=== PATIENT | female | born 2005 | race Two or more races ===

== ENCOUNTER 2025-06-18 08:20 | Emergency (ER) | payer MEDICAID, OTHER ==
[~2025-06-18] VITALS: Ht 157.5 cm; Wt 66.6 kg
[2025-06-18 08:21] VITALS: BP 119/77; PULSE 94; RESP 15; TEMP 98.5; O2SAT 95
--- NOTE | 2025-06-18 08:44 | ED.PDOC ---
GI ASSESSMENT HPI Comments 20-year-old female presents to the ER with a prior MHx of POTS, fibromyalgia, heart problem in the chief complaint of N/V. Patient reports on having one episode of emesis one week ago associated with the nausea which is still current and constipation for the past four days. Patient also reports on having a syncope which started today. Patient notes that she is currently on control pills and has no menstruation cycle. Denies any other symptoms at this time. Denies lightheadedness or dizziness Denies acid reflux, recurrent bitter/sour taste in mouth Denies shortness of breath Denies palpitations, leg swelling Denies family history of heart issues or [place] Denies history of panic attacks Denies recent trauma to the chest, history of significant trauma to the chest nor surgeries of the chest Denies fever chills nausea vomiting diarrhea Chief Complaint: Nausea/Vomiting Time Seen by MD: 08:40 Reviewed Notes: Nurses Notes, Medications, Allergies Allergies: Coded Allergies: Fexofenadine (Verified Allergy, Severe, 06/18/25) Information Source: Patient Mode of Arrival: Ambulatory Timing: Days Duration: Since onset, Days Prehospital treatment: None Quality: None Vomitus: None Stool: Other (Constipated) Severity: Moderate Recent: None Recent Hx of: None Pain Location: None Associated sign and symptoms: Nausea, Vomiting, Constipation Past Medical History Past Medical History (Other): Pots, fibromyalgia, heart problems. Surgical History: Denies all surgeries MANAGER UTILITY History: No Pertinent MANAGER UTILITY History Family History Family History: Reviewed,noncontributory to illness, Unknown Social History Smoker: Non-Smoker Alcohol: Denies ETOH Use Drugs: Denies Drug Use Lives In: Home Constitutional: denies: chills, diaphoresis, fatigue, fever, malaise, sweats, weakness, others EENTM: denies: blurred vision, double vision, ear bleeding, ear discharge, ear drainage, ear pain, ear ringing, eye pain, eye redness, hearing loss, mouth pain, mouth swelling, nasal discharge, nose bleeding, nose congestion, nose pain, photophobia, tearing, throat pain, throat swelling, voice changes, others Respiratory: denies: cough, hemoptysis, orthopnea, SOB at rest, shortness of breath, SOB with excertion, stridor, wheezing, others Cardiovascular: reports: syncope; denies: chest pain, dizzy spells, diap horesis, Dyspnea on exertion, edema, irregular heart beat, left arm pain, lightheadedness, palpitations, PND, others Gastrointestinal: reports: constipated, nausea, vomiting; denies: abdomen distended, abdominal pain, blood streaked bowels, diarrhea, dysphagia, difficulty swallowing, hematemesis, melena, poor appetite, poor fluid intake, rectal bleeding, rectal pain, others Genitourinary: denies: abnormal vagina bleeding, burning, dyspareunia, dysuria, flank pain, frequency, hematuria, incontinence, pain, , vagina disch arge, urgency, others Neurological: denies: dizziness, fainting, headache, left sided numbness, left sided weakness, numbness, paresthesia, pre-existing deficit, right sided numbness, right sided weakness, seizure, speech problems, tingling, tremors, weakness, others Musculoskeletal: denies: back pain, gout, joint pain, joint swelling, muscle pain, muscle stiffness, neck pain, others Integumetry: denies: bruises, change in color, change in hair/nails, dryness, laceration, lesions, lumps, rash, wounds, others Allergic/Immunocompromised: denies: Difficulty Healing, Frequent Infections, Hives, Itching, others Hematologic/Lymphatic: denies: anemia, blood clots, easy bleeding, easy bruising, swollen glands, others Endocrine: denies: excessive hunger, excessive sweating, excessive thirst, excessive urination, flushing, intolerance to cold, intolerance to heat, unexplained weight gain, unexplained weight loss, others Psychiatric: denies: anxiety, bipolar disorder, depression, hopeless, panic disorder, schizophrenia, sleepless, suicidal, others All Other Systems: Reviewed and Negative Physical Exam General Appearance: No Apparent Distress, Normal HEENT: Normal ENT Inspection, Pharynx Normal, TMs Normal Neck: Full Range of Motion, Non-Tender, Normal, Normal Inspection Respiratory: Chest Non-Tender, Lungs Clear, No Accessory Muscle Use, No Respiratory Distress, Normal Breath Sounds Cardiovascular: No Edema, No JVD, No Murmur, No Gallop, Normal Peripheral Pulses, Regular Rate/Rhythm Breast Exam: Deferred Gastrointestinal: No Organomegaly, Non Tender, No Pulsatile Mass, Normal Bowel Sounds, Soft Genitalia: Deferred Pelvic: Deferred Rectal: Deferred Extremities: No calf tenderness, Normal capillary refill, Normal inspection, Normal range of motion, Non-tender, No pedal edema Musculoskeletal : Apperance: Normal Neurologic: Alert, operational meteorologist II-XII nml as Tested, No Motor Deficits, Normal Affect, Normal Mood, No Sensory Deficits Cerebellar Function: Normal Reflexes: Normal Skin: Dry, Normal Color, Warm Lymphatic: No Adenopathy Was a procedure done? Was a procedure done?: No GI differential Dx Differential Diagnosis: Gastritis/PUD, Gastroenteritis X-Ray, Labs, Meds, VS Vital Signs Date Time Temp Pulse Resp B/P (MAP) Pulse Ox O2 Delivery O2 Flow Rate FiO2 06/18/25 08:21 98.5 94 15 119/77 95 98.5 Lab Test 06/18/25 09:02 Range/Units White Blood Count 7.5 4.4-10.8 10^3/uL Red Blood Count 4.25 4.0-5.20 10^6/uL Hemoglobin 10.9 L 12.2-16.2 g/dL Hematocrit 33.7 L 36.0-46.0 % Mean Corpuscular Volume 79.4 L 80.0-100.0 fL Mean Corpuscular Hemoglobin 25.7 L 28.0-32.0 pg Mean Corpuscular Hemoglobin Concent 32.3 32.0-36.0 g/dL Red Cell Distribution Width 15.0 H 11.8-14.3 % Platelet Count 360 140-450 10^3/uL Mean Platelet Volume 8.5 6.9-10.8 fL Neutrophils (%) (Auto) 59.0 37.0-80.0 % Lymphocytes (%) (Auto) 31.1 10.0-50.0 % Monocytes (%) (Auto) 7.0 0.0-12.0 % Eosinophils (%) (Auto) 2.1 0.0-7.0 % Basophils (%) (Auto) 0.8 0.0-2.0 % Neutrophils # (Auto) 4.4 1.6-8.6 10 ^3/uL Lymphocytes # (Auto) 2.3 0.4-5.4 10 ^3/uL Monocytes # (Auto) 0.5 0-1.3 10 ^3/uL Eosinophils # (Auto) 0.2 0-0.8 10 ^3/uL Basophils # (Auto) 0.1 0-0.2 10 ^3/uL Nucleated Red Blood Cells 0.1 % Sodium Level 139 136-145 mmol/L Potassium Level 3.3 L 3.5-5.1 mmol/L Chloride Level 107 98-107 mmol/L Carbon Dioxide Level 19 L 20-31 mmol/L Anion Gap 13 5-15 Blood Urea Nitrogen 9 9-23 mg/dL Creatinine 0.84 0.550-1.02 mg/dL Glomerular Filtration Rate Calc 102 >90 mL/min BUN/Creatinine Ratio 10.7 10.0-20.0 Serum Glucose 78 74-106 mg/dL Calcium Level 8.5 L 8.7-10.4 mg/dL Lipase 28 12-53 U/L Current Medications Medications (Trade) Dose Ordered Sig/Renata Route Start Time Stop Time Status Last Admin Sodium Chloride 1,000 ml @ 1,000 mls/hr Q1H ONCE IV 06/18/25 08:45 06/18/25 09:44 DC 06/18/25 08:48 X-Ray, Labs, Meds, VS Comment 20-year-old female presents to the ER with a prior MHx of POTS, fibromyalgia, heart problem in the chief complaint of N/V. Patient arrives alert and oriented, ABC's intact, afebrile, vital signs stable, saturating well in room air Peripheral IV insertion+ labs were ordered. CBC was ordered to exclude anemia, blood loss, or infection. BMP was ordered to exclude electrolyte abnormalities, renal failure, dehydration, hyperglycemia Preg and lipase Urinalysis was ordered to rule out UTI or hematuria. Labs in the ED showed (pertinent+ and then pertinent-) Patient was given: Fluids, Zofran. Tolerated medications with no adverse reaction. Additional MDM Review of External, Non-ED records: External records reviewed. Discussion with independent historian (EMS, family) history obtained from the patient/parents (if applicable) at bedside Chronic conditions affecting care: None Social determinants of health affecting care: None Consideration of admission (observation or admission): I considered escalation of care to admission for this patient, however given the reassuring workup, the patient is safe for outpatient management. Discussion with the Radiology: No Tests considered but not performed: Prescription medication considered but not given: 12 lead EKG interpretation: Time of 1ST Reevaluation: 09:10 Reevaluation 1ST: Unchanged Patient Education/Counseling: Diagnosis, Treatment, Prognosis Family Education/Counseling: No Family Present SEPSIS Sepsis Screen Date sepsis recognized/suspect: Jun 18, 2025 Time Sepsis recognized/suspect: 0823 Recent Procedure: No On Antibiotic Therapy: No Respiratory Rate >20: No Heart Rate >90: No Temp<36 C (96.8 F) or >38.3 C: No SBP <90 or MAP <65 mmHG: No New Acute Mental Status Change: No Is the patient on CPAP, BIPAP,: No Physician Orders Heplock Iv (06/18/25 08:36) Vital Signs Date Time Temp Pulse Resp B/P (MAP) Pulse Ox O2 Delivery O2 Flow Rate FiO2 06/18/25 08:21 98.5 94 15 119/77 95 98.5 Laboratory Tests Test 06/18/25 09:02 White Blood Count 7.5 10^3/uL (4.4-10.8) Departure 1 Departure Time of Disposition: 11:37 Impression: Primary Impression: Eloped from emergency department Disposition: 07 LEFT AWOL/ELOPED Condition: Fair Critical Care Note Critical Care Time?: No Stability Stability form required: No Heart Score Heart Score: Heart Score Response (Comments) Value History N/A 0 EKG N/A 0 Age N/A 0 Risk Factors N/A 0 Troponin N/A 0 Total 0 I personally scribed for MARTINEZ ODOM NP ([email or web address]) on 06/18/25 at 08:44. Electronically submitted by Srikanth Bob ([email or web address]). MARTINEZ ODOM NP Jun 18, 2025 08:44
[2025-06-18] MEDS ORDERED: ONDANSETRON HCL 4 MG/2 ML VIAL IM ONE (08:45)
[2025-06-18] MEDS: SODIUM CHLORIDE 0.9% 1,000 ML IV ONE (08:48)
[2025-06-18] MEDS: ONDANSETRON HCL 4 MG/2 ML VIAL IV ONE (08:57)
[2025-06-18 09:22] LABS: Hemoglobin 10.9 g/dL (12.2-16.2); Mean Corpuscular Hemoglobin 25.7 pg (28.0-32.0); Nucleated Red Blood Cells % 0.1 %
[2025-06-18 09:26] LABS: Hematocrit 33.7 % (36.0-46.0); Mean Corpuscular Volume 79.4 fL (80.0-100.0)
[2025-06-18 09:31] LABS: Chloride 107 mmol/L (98-107); Sodium 139 mmol/L (136-145)
[2025-06-18 09:32] LABS: Anion Gap 13 (5-15); Carbon Dioxide 19 mmol/L (20-31); Potassium 3.3 mmol/L (3.5-5.1)
[2025-06-18 09:37] LABS: BUN/Creatinine Ratio 10.7 (10.0-20.0); Blood Urea Nitrogen 9 mg/dL (9-23); Glucose 78 mg/dL (74-106)
[2025-06-18 09:42] LABS: Calcium 8.5 mg/dL (8.7-10.4)
[2025-06-18 10:02] LABS: Lipase 28 U/L (12-53)
== END 2025-06-18 11:37 | disposition left against medical advice (07) ==
LOC: ER 08:20
DX: K59.00 Constipation, unspecified (principal); M79.7 Fibromyalgia
CPT/HCPCS: 36415; 80048; 83690; 85025; 96360; 99283; J7030; J2405